=== PATIENT | female | born 1955 | race Caucasian/White ===

== ENCOUNTER → 2024-05-29 14:14 | Outpatient (REF) | payer MEDICARE, OTHER, SELFPAY | LOC: HWRAD 14:14 | PROVIDERS: ATTENDING PHYSICIAN Nurse Practitioner | DX: Z13.820 Encounter for screening for osteoporosis (principal); Z12.31 Encounter for screening mammogram for malignant neoplasm of breast; Z78.0 Asymptomatic menopausal state | CPT/HCPCS: 77063; 77067; 77080 ==

== ENCOUNTER 2024-06-16 09:11 | Inpatient (IN) | payer MEDICARE, OTHER, SELFPAY ==
[2024-06-15] VITALS (7 sets, daily range): BP systolic 93–198; BP diastolic 61–108; BMI 19.6
--- NOTE | 2024-06-15 19:46 | ED.GENMED ---
History of Present Illness
General
Chief Complaint: Breathing Problem
Source: patient and spouse
Exam Limitations: none
Time Seen by Provider: 06/15/24 19:30
Nursing documentation reviewed up to this point in time: agreed with
History of Present Illness
History of Present Illness:
Patient states she had 'flu like' symptoms 1 week ago. Since then has noted progressive SOB. Tonight breathing became more difficult. Brought to ED by spouse for eval. No fever/chlls. +course cough. Used her Trilogy as prescribed, used rescue
inhaler tonight without improvement.
Past History
Past History
ED Past Medical History: COPD, HTN, Hypercholesterolemia and Other (Lower GI bleed s/p polypectomy)
ED Past Surgical History: Cholecystectomy, Gynecological and Orthopedic
Social History
Tobacco: Former smoker
Alcohol: Occasional
Drug: None
Personal:
Living: with family
Employment: Retired
Family History
Family History: Other (Noncontributory)
Review of Systems
Review of Systems
Allergies reviewed?: Yes
All Other Systems: ROS reviewed and negative except as documented in HPI and ROS
Constitutional: Reports fatigue
EENT: Reports no symptoms
Respiratory: Reports cough and trouble breathing
Cardiac: Reports no symptoms
ABD/GI: Reports no symptoms
: Reports no symptoms
Musculoskeletal: Reports no symptoms
Skin: Reports no symptoms
Neurological: Reports no symptoms
Psychiatric: Reports no symptoms
Phy Exam
General Physical Exam
General Presentation: well appearing and no apparent distress
General age: appears stated age
General Skin: warm and dry
General Habitus: normal
General Mental: alert
Cardiovascular Exam
Cardiovascular Exam: regular rate/rhythm and no edema
Pulmonary Exam
Pulmonary Exam: chest non tender and decreased breath sounds
Musculoskeletal Exam
Musculoskeletal Exam: full ROM, no edema and neuro vasc intact
Skin Exam
Skin Exam: normal color, warm/dry and no rash
Psychiatric Exam
Psychiatric Exam: normal mood/affect
Scores
Heart Failure Risk
Heart Failure Risk Score: Not Applicable
Course
Orders/Labs/Results
Orders:
Orders
06/15/24 19:45
Electrocardiogram (*1) Urgent
Reason for Study: Shortness of Breath
EKG- Treatment ONCE
CR Chest - 2 Views Urgent
Comment:
Reason For Exam: SOB
06/15/24 19:47
Ipratropium/Albuterol Sulfate [Duoneb] 3 ml INH R NOW STA
06/15/24 20:16
COVID-19 Antigen Urgent
Source: Nasal Swab
Complete Blood Count/With Diff Urgent
Comprehensive Metabolic Panel Urgent
Influenza A+B Rapid Molecular Urgent
MAUDE Source: Nasal Swab
Specimen Description:
06/15/24 21:01
0.9% Sodium Chloride 500 ml [Nss] 500 ml IV BOLUS
Dexamethasone Sod Phosphate [Decadron] 10 mg IV NOW STA
06/15/24 21:41
Albuterol Sulfate [Ventolin Nebules] 7.5 mg INH R NOW STA
06/15/24 23:24
Admit/Transfer Patient As Directed
Co-Sign Provider:
Level of Care: Observation services
Assign to:: Medical/Surgical
Physician / Group: gareth
Diagnosis: copd exacerbation
Code Status As Directed
Resuscitation Status: Full Code
PRN Pain Medication Management As Directed
May give lesser potent ordered pain med per pt: Yes
preference::
Protocol:: Medication orders for pain may be administered in a
manner that supports deferring to patient preference
when the pt is:
- Requesting an ordered lesser potent pain medication.
Least to most potent pain medications are defined
as: acetaminophen < NSAID < tramadol < opioids
(morphine, oxycodone, hydromorphone).
- Requesting a lesser dose of the same medication IF
ORDERED.
- Requesting a less intrusive route of administration
if both routes are prescribed by the provider (PO <
IV).
06/16/24 01:52
Acetaminophen [Tylenol] 500 mg PO Q6HPRN PRN
Azithromycin 500 mg/250 ml [Zithromax Infusion] 500 mg in 250 ml IV Q24H
Dexamethasone Sod Phosphate [Decadron] 4 mg IV Q8H
Warfarin [Coumadin] 5 mg PO SuTuWeFrSa@1800
06/16/24 01:52
VTE Contraindication Routine
VTE Mechanical Device Contraindication: Medical Contraindication
Pharmocologic Contraindication: Medical Contraindication
Activity As Directed
Activity Level: As Tolerated
Vital Signs As Directed
Frequency: Per unit guidelines
06/16/24 07:09
Complete Blood Count/With Diff IN AM
Comprehensive Metabolic Panel IN AM
Prothrombin Time IN AM
06/16/24 08:00
Ipratropium/Albuterol Sulfate [Duoneb] 3 ml INH R QID
06/16/24 18:00
Lisinopril [Zestril] 2.5 mg PO QPM
Rosuvastatin Calcium [Crestor] 40 mg PO QPM
06/18/24 18:00
Warfarin [Coumadin] 7.5 mg PO MoTh@1800
Abnormal Lab Results
06/15/24
20:16
WBC 4.7 L 10^3/uL
(4.8-10.8)
MCHC 32.3 L g/dL
(33.0-37.0)
Absolute Lymphs (auto) 0.9 L 10^3/uL
(1.2-3.4)
Lymphocytes % 20.2 L %
(20.5-51.1)
Glucose 139 H mg/dl
(70-99)
06/15/24 20:16
06/15/24 20:16
Vital Signs
Initial and Last Documented VS:
Initial Vital Signs
Temp Pulse Resp BP Pulse Ox
98.2 F 104 17 198/108 94
06/15/24 19:27 06/15/24 19:27 06/15/24 19:27 06/15/24 19:27 06/15/24 19:27
Last Documented Vital Signs
Temp Pulse Resp BP Pulse Ox
98.0 F 92 18 155/83 93
06/16/24 15:25 06/16/24 15:42 06/16/24 15:42 06/16/24 15:25 06/16/24 21:53
*Radiology
Radiology exam reviewed: radiology read reviewed
*Pulse Oximetry
Patient hypoxic: yes
Comment: 92-93% RA at rest. 85% minimal activity.
*Critical Care Note
Total Time (30-74mins, 75-104mins- exclusive of procedures): Not Applicable
ED Attending Note
-
Portions of this chart may have been created with voice recognition software.� Occasional wrong word or��sound alike� substitutions may have occurred due to the inherent limitations of voice recognition software.
Discharge Plan
Departure
Patient Disposition: Admit
Date of Disposition: 06/15/24
Time of Disposition: 23:02
Presentation/result/management discussed w/ accepting MD/DO: Hospitalist
Condition: Fair
Covid-19: Negative COVID-19
Discharge Problem:
COPD exacerbation
Interventions
Interventions:
*Risk Screen - Suicide Last Done: 06/15/24 19:27
*General Assessment Last Done: 06/15/24 19:27
*Neglect/Abuse Screening Last Done: 06/15/24 19:27
ED- Fall Risk Assessment Last Done: 06/15/24 19:40
*ED COVID-19 Vaccine History Last Done: 06/15/24 19:27
*Nursing Disposition Last Done: 06/16/24 01:40
ED- Cardiac Assessment Last Done: 06/15/24 19:40
ED- Pulmonary Assessment Last Done: 06/15/24 19:40
Discharge Date and Time
Discharge Date/Time: 06/16/24 01:45
[2024-06-15] MEDS: DUONEB 3 ML INH (19:55)
[2024-06-15 20:29] LABS: % Basophils 0.4 % (0-2); % Eosinophils 0.6 % (0-6); % Immature Granulocytes 0.2 % (0-0.5); % Lymphocytes 20.2 % (20.5-51.1); % Monocytes 6.9 % (1.7-9.3); % Neutrophils 71.7 % (42.2-75.2); Absolute Lymphocytes 0.9 10^3/uL (1.2-3.4); Absolute Monocytes 0.3 10^3/uL (0.1-0.6); Absolute Neutrophils 3.3 10^3/uL (1.4-6.5); Hematocrit 38.7 % (37.0-47.0); Hemoglobin 12.5 g/dL (12.0-16.0); Mean Corp Hgb Conc. 32.3 g/dL (33.0-37.0); Mean Corpuscular Hgb 28.7 pg (27.0-31.0); Mean Platelet Volume 9.5 fL (7.4-10.4); Nucleated Red Blood Cells % 0 %; Platelet Count 157 10^3/uL (130-400); Red Blood Cell Count 4.35 10^6/uL (4.20-5.40); Red Cell Dist. Width 13.7 % (11.5-14.5); White Blood Cell Count 4.7 10^3/uL (4.8-10.8)
[2024-06-15 20:43] LABS: COVID-19 Antigen Negative (Negative)
[2024-06-15 21:05] LABS: ALT (SGPT) 18 U/L (0-35); AST (SGOT) 28 U/L (14-36); Albumin 4.4 g/dl (3.5-5.0); Alkaline Phosphatase 57 U/L (38-126); Blood Urea Nitrogen 14 mg/dl (7-17); Calcium 9.7 mg/dl (8.4-10.2); Carbon Dioxide 29 mmol/L (22-30); Chloride 101 mmol/L (98-107); Estimated Creatinine Clearance 57 ml/min; Glucose 139 mg/dl (70-99); Potassium 3.7 mmol/L (3.5-5.1); Sodium 142 mmol/L (135-145); Total Bilirubin 0.7 mg/dl (0.2-1.3); Total Protein 6.7 g/dl (6.3-8.2); eGFR > 60.00
[2024-06-15] MEDS: DECADRON 10 MG IV (21:26)
[2024-06-15] MEDS: NSS 500 IV (21:37)
[2024-06-15] MEDS: VENTOLIN NEBULES 7.5 MG INH (22:18)
--- NOTE | 2024-06-15 23:27 | HPS.HSE ---
Family Physician
-
Family Physician: Xochilt Allred
Chief Complaint
-
cough, shortness of breath
History of Present Illness
68-year-old female past medical history of COPD, CAD, Takotsubo cardiomyopathy, antiphospholipid antibody syndrome on Coumadin, hyperlipidemia, lower GI bleeding with history of colon polyp status post polypectomy, hypertension, psoriasis, lung
nodule presenting with flulike symptoms 1 week ago with bodyaches, sore throat, cough, chills. She initially felt better after a few days but then felt worse. Cough got worse this productive with shortness of breath. She denies chest pain or
tightness. She denies any fevers or chills. She denies any sick contacts. She denies nausea vomiting or diarrhea.
She only uses albuterol rescue inhaler once a year.
She no longer smokes or vapes but uses an empty vape pen. She denies alcohol use.
Medical History
Past Medical History
Past Medical History: Reports Other (COPD, CAD, Takotsubo cardiomyopathy, antiphospholipid antibody syndrome on Coumadin, hyperlipidemia, lower GI bleeding with history of colon polyp status post polypectomy, hypertension, psoriasis, lung nodule )
Past Surgical History: Reports Other ( Cholecystectomy, tubal ligation, C-spine fusion surgery,)
Social History
Tobacco: Vaping
Alcohol: None
Drug: None
Family History
Family History: Not pertinent
Allergies / Home Medications
Allergies reflects when Allergies were last updated in [employer].
Home Medications with original date entered in [employer]
Allergy/Medication List:
Allergies
Allergy/AdvReac Type Severity Reaction Status Date / Time
sumatriptan [From Imitrex] Allergy Shortness Verified 03/27/23 13:10
of Breath
Home Medications
albuterol sulfate 90 mcg/actuation aerosol inhaler 2 puff inhalation R Q4HPRN PRN sob 03/02/22
fluticasone fur. 100 mcg-umeclid 62.5 mcg-vilant 25 mcg inhalat.powder (Trelegy Ellipta) 1 inh inhalation R DAILY Lung/Breathing Issues 03/21/23
rosuvastatin 40 mg tablet 40 mg PO QPM High Cholesterol 03/21/23
lisinopril 2.5 mg tablet 2.5 mg PO QPM Blood Pressure 03/27/23
acetaminophen 500 mg tablet (Tylenol Extra Strength) 500 mg PO Q6HPRN PRN mild pain 06/15/24
warfarin 5 mg tablet 5 mg PO SUTUWEFRSA 06/15/24
warfarin 5 mg tablet 7.5 mg PO MOTH 06/15/24
Review of Systems
-
History Source: Patient
A 12 point ROS was completed and negative except as noted: Yes
Constitutional: Reports No Symptoms
EENT: Reports No Symptoms
Respiratory: Reports No Symptoms
Cardiac: Reports No Symptoms
Abdomen/GI: Reports No Symptoms
: Reports No Symptoms
Musculoskeletal: Reports No Symptoms
Skin: Reports No Symptoms
Neurological: Reports No Symptoms
Endocrine: Reports No Symptoms
Hematologic/Lymphatic: Reports No Symptoms
Psych: Reports No Symptoms
Physical Exam
Vital Signs
Vital Signs
Temp Pulse Resp BP Pulse Ox
98.2 F 73 11 125/61 96
06/15/24 19:27 06/15/24 22:00 06/15/24 22:00 06/15/24 22:00 06/15/24 22:00
Physical Exam
General: Well Developed, Well Nourished and No Apparent Distress
HEENT: NormoCephalic, Moist mucous membranes and Atraumatic
Respiratory: Wheezes
Cardiac: S1/S2 and Regular Rhythm; No Murmur or Rub
GI: Soft, Non Tender, Non Distended and Normal Bowel Sounds; No Organomegaly
Rectal: Deferred by Provider
Musculoskeletal: No Clubbing, No Cyanosis and No Edema
Skin: No Rash
Neuro: Nonfocal/grossly intact
Laboratory Results
-
06/15/24 20:16
06/15/24 20:16
Laboratory Results
Total Bilirubin 0.7 mg/dl (0.2-1.3) 06/15/24 20:16
AST 28 U/L (14-36) 06/15/24 20:16
ALT 18 U/L (0-35) 06/15/24 20:16
Alkaline Phosphatase 57 U/L (38-126) 06/15/24 20:16
Data Reviewed
-
Lab Data: Labs Reviewed by me
Old Records: Reviewed
Impression/Plan
-
IMPRESSION:
PLAN:
# Acute COPD exacerbation
-Bilateral wheezing
-COVID and influenza negative
-Chest x-ray unremarkable
-DuoNebs every 6 hours
-Dexamethasone 4 mg every 8 hours
-Azithromycin
History of lung nodule
-Recently underwent bronchoscopy in March which was nondiagnostic due to hemoptysis
Takotsubo cardiomyopathy
CAD
History of PVCs/PACs/SVT
Antiphospholipid antibody syndrome
-Continue Coumadin
-Check INR daily
Hyperlipidemia
-Continue statin
History of lower GI bleeding secondary to colon polyp status post polypectomy
Essential hypertension
-Continue lisinopril
Psoriasis
GERD
Former smoker
Vaping history
Full code
DVT prophylaxis�Coumadin
Regular diet
[2024-06-16 02:00] VITALS: BMI 18.4
[2024-06-16 02:10] VITALS: BP 138/73
[2024-06-16] MEDS: DECADRON 4 MG IV ×3 (02:33→17:16)
[2024-06-16] MEDS: ZITHROMAX INFUSION 250 IV (02:34)
--- NOTE | 2024-06-16 02:43 | PTCARENOTE ---
Pt admitted to . AAOx3 pleasant. Regular heart sounds. Lung sounds are diminished, shallow breathing and dyspneic with exertion. saO2 95% 1.5L. O2 will be wean as tolerated. Call little within reach and pt appears comfortable in bed.
[2024-06-16 07:30] VITALS: BP 124/70
[2024-06-16] MEDS: DUONEB 3 ML INH ×4 (07:44→19:50)
[2024-06-16 07:59] LABS: INR 3.31; PT 33.4 Sec (11.4-14.6)
[2024-06-16 08:25] LABS: ALT (SGPT) 18 U/L (0-35); AST (SGOT) 25 U/L (14-36); Albumin 4.2 g/dl (3.5-5.0); Alkaline Phosphatase 54 U/L (38-126); Blood Urea Nitrogen 15 mg/dl (7-17); Calcium 9.4 mg/dl (8.4-10.2); Carbon Dioxide 25 mmol/L (22-30); Chloride 105 mmol/L (98-107); Estimated Creatinine Clearance 64 ml/min; Glucose 160 mg/dl (70-99); Sodium 143 mmol/L (135-145); Total Bilirubin 0.4 mg/dl (0.2-1.3); Total Protein 6.3 g/dl (6.3-8.2); eGFR > 60.00
[2024-06-16 08:34] LABS: Hematocrit 37.1 % (37.0-47.0); Hemoglobin 11.9 g/dL (12.0-16.0); Mean Corp Hgb Conc. 32.1 g/dL (33.0-37.0); Mean Corpuscular Hgb 29.1 pg (27.0-31.0); Mean Corpuscular Volume 90.7 fL (81.0-99.0); Mean Platelet Volume 9.8 fL (7.4-10.4); Platelet Count 146 10^3/uL (130-400); Red Blood Cell Count 4.09 10^6/uL (4.20-5.40); Red Cell Dist. Width 13.7 % (11.5-14.5); White Blood Cell Count 2.9 10^3/uL (4.8-10.8)
--- NOTE | 2024-06-16 10:30 | W.PN.HOSP.TC ---
Today's Communication/Plan
-
see A/P
Assessment / Plan
Assessment / Plan
68-year-old female past medical history of COPD, CAD, Takotsubo cardiomyopathy, antiphospholipid antibody syndrome on Coumadin, hyperlipidemia, lower GI bleeding with history of colon polyp status post polypectomy, hypertension, psoriasis, lung
nodule; presented with flu-like symptoms 1 week ago with body aches, sore throat, cough, chills. She initially felt better after a few days but then felt worse. Cough got worse which is now productive, also c/o shortness of breath.
She denies chest pain or tightness. She denies any fevers or chills. She denies any sick contacts. She denies nausea vomiting or diarrhea.
She only uses albuterol rescue inhaler once a year.
She no longer smokes or vapes but uses an empty vape pen. She denies alcohol use.
A/P:
# Acute COPD exacerbation, likely precipitated by recent viral illness
COVID and influenza negative, Chest x-ray unremarkable
Check procalcitonin
Cont DuoNebs every 6 hours ATC and PRN
Cont Dexamethasone 4 mg every 8 hours for Bilateral wheezing
Azithromycin 500 mg x3 days
# Acute hypoxic respiratory insufficiency
Pt placed on 2L NC, cont O2 support and wean as tolerated, she is NOT on home O2
Check walking pulse Ox prior to discharge
# History of lung nodule
Recently underwent bronchoscopy in March which was nondiagnostic due to hemoptysis
Pt is well established with Pulm outpt
# Takotsubo cardiomyopathy
# CAD
# History of PVCs/PACs/SVT
# Antiphospholipid antibody syndrome
Continue [employer]ER Coumadin, holding tonight's dose with INR 3.3
INR daily
# Hyperlipidemia
Continue statin
# History of lower GI bleeding secondary to colon polyp status post polypectomy
# Essential hypertension
Continue lisinopril
# Psoriasis
# GERD
# Former smoker
# Vaping history
Full code
DVT prophylaxis�Coumadin, daily INR
Regular diet
DW at bedside
DW RN
Anticipated Discharge: 24 - 48 hours
Subjective/Interval History
-
Date of Service: June 16, 2024
Objective Data
-
Labs:
Laboratory Results
06/16/24
07:09
WBC 2.9 L
Hgb 11.9 L
Hct 37.1
Plt Count 146
PT 33.4 H
INR 3.31
Sodium 143
Potassium 4.0
Chloride 105
Carbon Dioxide 25
BUN 15
Creatinine 0.6
Glucose 160 H
Calcium 9.4
Total Bilirubin 0.4
AST 25
ALT 18
Alkaline Phosphatase 54
Vital Signs:
Vital Signs
Temp Pulse Resp BP Pulse Ox
36.8 C 93 18 124/70 95
06/16/24 07:30 06/16/24 07:49 06/16/24 07:49 06/16/24 07:30 06/16/24 07:49
I&O
06/15/24 06/16/24 06/17/24
06:59 06:59 06:59
Intake Total 610 / 610
Balance 610 / 610
Review of Systems
-
Respiratory: Reports Trouble Breathing (improved ) and Wheezing (improved )
Physical Exam
-
General: Well Developed, Well Nourished, Comfortable, Respiratory Distress (mild) and Conversant (speak in full sentences)
HEENT: Normocephalic, Atraumatic, Nose Appears Normal, Ears Appear Normal and Oxygen (2L NC)
Respiratory: Clear to Auscultation, Wheezes (mild, BL bases) and Non Labored Respirations; Negative Accessory Resp Muscle Use
Cardiac: Regular Rhythm and S1/S2
GI: Soft, Nontender, Nondistended and Normal Bowel Sounds
Skin: Warm and Dry
Neuro: Awake, Alert, Oriented, AO x 3 and Nonfocal/Grossly Intact
Psych: Calm and Intact Judgement/Insight
Data Reviewed
-
Diagnostic Radiology: Report Reviewed by me
Labs: Labs Reviewed by me
[2024-06-16] MEDS: ZITHROMAX 500 MG PO (10:55)
--- NOTE | 2024-06-16 12:08 | CM ---
CM reviewed chart, met with patient bedside, initial assessment completed. Patient resides with her in a multiple story home, three steps to enter. Patient denies use of DME, currently on O2, not on home O2. Patient denies VN or SNF history.
Patient confirms PCP- SALES AND SERVICE ENGINEER Xochilt Allred, pharmacy [facility], confirms prescription coverage. Patient denies insecurities at home. ARZOLA reviewed, signed, placed in chart, patient provided with copy. CM will continue to follow for all discharge
planning needs.
Plan; home no needs likely, watch for O2 needs.
[2024-06-16 12:33] LABS: Procalcitonin < 0.05 ng/ml (0.0-0.25)
[2024-06-16 13:24] LABS: % Immature Granulocytes 0.3 % (0-0.5); % Lymphocytes 9.4 % (20.5-51.1); % Monocytes 2.1 % (1.7-9.3); Absolute Lymphocytes 0.3 10^3/uL (1.2-3.4); Absolute Monocytes 0.1 10^3/uL (0.1-0.6); Absolute Neutrophils 2.5 10^3/uL (1.4-6.5); Nucleated Red Blood Cells % 0 %
[2024-06-16 13:26] LABS: % Neutrophils 88.2 % (42.2-75.2)
[2024-06-16 15:25] VITALS: BP 155/83
[2024-06-16] MEDS: CRESTOR 40 MG PO (17:17)
[2024-06-16] MEDS: ZESTRIL 2.5 MG PO (17:17)
[2024-06-16 23:32] VITALS: BP 145/78
[2024-06-17] MEDS: DECADRON 4 MG IV ×3 (02:12→17:10)
[2024-06-17 05:49] LABS: % Immature Granulocytes 0.3 % (0-0.5); % Monocytes 4.8 % (1.7-9.3); % Neutrophils 88.9 % (42.2-75.2); Absolute Lymphocytes 0.4 10^3/uL (1.2-3.4); Absolute Monocytes 0.3 10^3/uL (0.1-0.6); Hematocrit 36.7 % (37.0-47.0); Mean Corp Hgb Conc. 32.7 g/dL (33.0-37.0); Mean Corpuscular Hgb 29.4 pg (27.0-31.0); Mean Platelet Volume 9.7 fL (7.4-10.4); Nucleated Red Blood Cells % 0 %; Platelet Count 165 10^3/uL (130-400); Red Blood Cell Count 4.08 10^6/uL (4.20-5.40); Red Cell Dist. Width 13.5 % (11.5-14.5); White Blood Cell Count 6.7 10^3/uL (4.8-10.8)
[2024-06-17 05:53] LABS: INR 3.84; PT 37.4 Sec (11.4-14.6)
[2024-06-17 06:29] LABS: Blood Urea Nitrogen 19 mg/dl (7-17); Calcium 9.3 mg/dl (8.4-10.2); Carbon Dioxide 24 mmol/L (22-30); Chloride 104 mmol/L (98-107); Estimated Creatinine Clearance 55 ml/min; Glucose 133 mg/dl (70-99); Potassium 4.1 mmol/L (3.5-5.1); Sodium 140 mmol/L (135-145); eGFR > 60.00
[2024-06-17] MEDS: DUONEB 3 ML INH ×4 (07:46→19:56)
[2024-06-17 08:00] VITALS: BP 142/75
[2024-06-17] MEDS: ZITHROMAX 500 MG PO (08:59)
--- NOTE | 2024-06-17 11:35 | W.PN.HOSP.TC ---
Today's Communication/Plan
-
see A/P
Assessment / Plan
Assessment / Plan
68-year-old female past medical history of COPD, CAD, Takotsubo cardiomyopathy, antiphospholipid antibody syndrome on Coumadin, hyperlipidemia, lower GI bleeding with history of colon polyp status post polypectomy, hypertension, psoriasis, lung
nodule; presented with flu-like symptoms 1 week ago with body aches, sore throat, cough, chills. She initially felt better after a few days but then felt worse. Cough got worse which is now productive, also c/o shortness of breath.
She denies chest pain or tightness. She denies any fevers or chills. She denies any sick contacts. She denies nausea vomiting or diarrhea.
She only uses albuterol rescue inhaler once a year.
She no longer smokes or vapes but uses an empty vape pen. She denies alcohol use.
A/P:
# Acute COPD exacerbation, likely precipitated by recent viral illness
COVID and influenza negative, Chest x-ray unremarkable, procalcitonin negative
Cont DuoNebs every 6 hours ATC and PRN
Cont Dexamethasone 4 mg every 8 hours for Bilateral wheezing
Azithromycin 500 mg x3 days
# Acute hypoxic respiratory insufficiency
Pt placed on 2L NC, cont O2 support and wean as tolerated, she is NOT on home O2
Check walking pulse Ox prior to discharge
# History of lung nodule
Recently underwent bronchoscopy in March which was nondiagnostic due to hemoptysis
Pt is well established with Pulm outpt
# Takotsubo cardiomyopathy
# CAD
# History of PVCs/PACs/SVT
# Antiphospholipid antibody syndrome
[employer] Coumadin on hold with elevated INR at 3.8 today
INR daily
# Hyperlipidemia
Continue statin
# History of lower GI bleeding secondary to colon polyp status post polypectomy
# Essential hypertension
Continue lisinopril
# Psoriasis
# GERD
# Former smoker
# Vaping history
Full code
DVT prophylaxis� [employer] Coumadin, daily INR
Regular diet
DW at bedside
Anticipated Discharge: 24 - 48 hours
Subjective/Interval History
-
Date of Service: June 17, 2024
Objective Data
-
Labs:
Laboratory Results
06/17/24
05:22
WBC 6.7
Hgb 12.0
Hct 36.7 L
Plt Count 165
PT 37.4 H
INR 3.84
Sodium 140
Potassium 4.1
Chloride 104
Carbon Dioxide 24
BUN 19 H
Creatinine 0.7
Glucose 133 H
Calcium 9.3
Vital Signs:
Vital Signs
Temp Pulse Resp BP Pulse Ox
36.6 C 91 18 142/75 95
06/17/24 08:00 06/17/24 11:21 06/17/24 11:21 06/17/24 08:00 06/17/24 11:21
I&O
06/16/24 06/17/24 06/18/24
06:59 06:59 06:59
Intake Total 610 / 610 1460 / 1460
Balance 610 / 610 1460 / 1460
Review of Systems
-
Respiratory: Reports Trouble Breathing and Wheezing
Physical Exam
-
General: Well Developed, Well Nourished, Comfortable, Respiratory Distress (mild) and Conversant (speak in full sentences)
HEENT: Normocephalic, Atraumatic, Nose Appears Normal, Ears Appear Normal and Oxygen (2L NC)
Respiratory: Clear to Auscultation, Wheezes (mild, BL bases) and Non Labored Respirations; Negative Accessory Resp Muscle Use
Cardiac: Regular Rhythm and S1/S2
GI: Soft, Nontender, Nondistended and Normal Bowel Sounds
Skin: Warm and Dry
Neuro: Awake, Alert, Oriented and AO x 3
Psych: Calm and Intact Judgement/Insight
Data Reviewed
-
Diagnostic Radiology: Report Reviewed by me
Labs: Labs Reviewed by me
--- NOTE | 2024-06-17 13:00 | PTCARENOTE ---
Placed pt on !L of cont O2 to try and wean her. At present ptc/o feeling SOB. Pt placed back on 2L. Occasional audible wheeze noted. Will cont to monitor.
[2024-06-17 16:30] VITALS: BP 132/70
[2024-06-17] MEDS: CRESTOR 40 MG PO (17:10)
[2024-06-17] MEDS: ZESTRIL 2.5 MG PO (17:10)
[2024-06-17 23:18] VITALS: BP 123/61
[2024-06-18] MEDS: DECADRON 4 MG IV (02:16)
[2024-06-18] MEDS: DUONEB 3 ML INH ×2 (07:27→11:08)
[2024-06-18 07:30] VITALS: BP 137/67
[2024-06-18 07:44] LABS: % Basophils 0.1 % (0-2); % Immature Granulocytes 0.4 % (0-0.5); % Lymphocytes 5.1 % (20.5-51.1); % Neutrophils 90.4 % (42.2-75.2); Absolute Lymphocytes 0.5 10^3/uL (1.2-3.4); Absolute Monocytes 0.4 10^3/uL (0.1-0.6); Absolute Neutrophils 9.3 10^3/uL (1.4-6.5); Hematocrit 39.4 % (37.0-47.0); Hemoglobin 12.5 g/dL (12.0-16.0); Mean Corp Hgb Conc. 31.7 g/dL (33.0-37.0); Mean Corpuscular Volume 91.4 fL (81.0-99.0); Nucleated Red Blood Cells % 0 %; Platelet Count 216 10^3/uL (130-400); Red Blood Cell Count 4.31 10^6/uL (4.20-5.40); Red Cell Dist. Width 13.9 % (11.5-14.5); White Blood Cell Count 10.2 10^3/uL (4.8-10.8)
[2024-06-18 08:01] LABS: PT 33.4 Sec (11.4-14.6)
[2024-06-18 08:03] LABS: Blood Urea Nitrogen 23 mg/dl (7-17); Calcium 9.3 mg/dl (8.4-10.2); Carbon Dioxide 25 mmol/L (22-30); Chloride 102 mmol/L (98-107); Estimated Creatinine Clearance 55 ml/min; Glucose 150 mg/dl (70-99); Magnesium 2.3 mg/dl (1.6-2.3); Potassium 4.3 mmol/L (3.5-5.1); Sodium 141 mmol/L (135-145); eGFR > 60.00
[2024-06-18] MEDS: ZITHROMAX 500 MG PO (08:51)
--- NOTE | 2024-06-18 08:55 | W.PN.HOSP.TC ---
Addendum entered and electronically signed by Dangelo Armas MD 06/18/24 16:29:
#BMI: 18.4 - Underweight
Encourage oral intake
Original Note:
Today's Communication/Plan
-
Change to prednisone
Discharge today
Assessment / Plan
Assessment / Plan
68-year-old female past medical history of COPD, CAD, Takotsubo cardiomyopathy, antiphospholipid antibody syndrome on Coumadin, hyperlipidemia, lower GI bleeding with history of colon polyp status post polypectomy, hypertension, psoriasis, lung
nodule; presented with flu-like symptoms 1 week ago with body aches, sore throat, cough, chills. She initially felt better after a few days but then felt worse. Cough got worse which is now productive, also c/o shortness of breath.
She denies chest pain or tightness. She denies any fevers or chills. She denies any sick contacts. She denies nausea vomiting or diarrhea.
She only uses albuterol rescue inhaler once a year.
She no longer smokes or vapes but uses an empty vape pen. She denies alcohol use.
A/P:
# Acute COPD exacerbation, likely precipitated by recent viral illness
COVID and influenza negative, Chest x-ray unremarkable, procalcitonin negative
Resolved status post IV dexamethasone, DuoNebs
Change to prednisone 40 mg daily for 5 more days, no taper needed
Discharge on azithromycin for 2 more days to complete a 5-day course
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 Santizo in 2-3 weeks
# Acute hypoxic respiratory insufficiency
Pt placed on 2L NC, cont O2 support and wean as tolerated, she is NOT on home O2
Resolved, does not need oxygen at rest or with activity
# History of lung nodule
Recently underwent bronchoscopy in March which was nondiagnostic due to hemoptysis
Pt is well established with Pulm outpt
# Takotsubo cardiomyopathy
# CAD
# History of PVCs/PACs/SVT
# Antiphospholipid antibody syndrome
[employer]FA[employer]URING [employer] Coumadin on hold with elevated INR at 3.3 today
INR daily
# Hyperlipidemia
Continue statin
# History of lower GI bleeding secondary to colon polyp status post polypectomy
# Essential hypertension
Continue lisinopril
# Psoriasis
# GERD
# Former smoker
# Vaping history
Full code
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
Regular diet
Physical Exam
General: No acute distress
HEENT: Normocephalic, Atraumatic, EOMI, MMM
Respiratory: Diminished breath sounds in all lung bynum
Cardiac: Normal S1/S2, Regular Rate and Rhythm
GI: Soft, Nontender, Nondistended, Normal Bowel Sounds
Extremities: No Clubbing, Cyanosis, or Edema
Neuro: Nonfocal/Grossly Intact
Psych: Calm, Cooperative
Anticipated Discharge: Today
Subjective/Interval History
-
Date of Service: June 18, 2024
Patient denies shortness of breath at rest. Denies dyspnea with activity. No fever, no vomiting. No chest pain. She feels well today, and is eager for discharge.
Objective Data
-
Labs:
Laboratory Results
06/18/24
06:43
WBC 10.2
Hgb 12.5
Hct 39.4
Plt Count 216 D
PT 33.4 H
INR 3.30
Sodium 141
Potassium 4.3
Chloride 102
Carbon Dioxide 25
BUN 23 H
Creatinine 0.7
Glucose 150 H
Calcium 9.3
Vital Signs:
Vital Signs
Temp Pulse Resp BP Pulse Ox
97.7 F 79 16 137/67 96
06/18/24 07:30 06/18/24 07:31 06/18/24 07:31 06/18/24 07:30 06/18/24 07:31
I&O
06/17/24 06/18/24 06/19/24
06:59 06:59 06:59
Intake Total 1460 / 1460 1690 / 1690
Balance 1460 / 1460 1690 / 1690
[2024-06-18] MEDS: DECADRON IV (10:03)
--- NOTE | 2024-06-18 11:46 | CM ---
CM reviewed chart and noted dc order
Pt is independent throughout hallway
Per home O2 eval, does not qualify
Bedside meeting with pt and spouse
No dc needs identified
Pt now inpt- IMM verbally completed
Copy provided
Discharge Disposition- home, no needs, spouse transport
[2024-06-18] MEDS: DELTASONE 40 MG PO (11:47)
--- NOTE | 2024-06-18 12:32 | PTCARENOTE ---
pt educated on d/c. iv removed. pt verbalized understanding of medications and d/c. pt left via wheelchair with staff member. pt left w/ belongings and d/c instructions.
--- NOTE | 2024-06-18 13:57 | W.DCSUMMARY ---
Discharge Summary
Discharge Data
Date of Admission: 06/16/24
Date of Discharge: 06/18/24
-
Pending Results: No
Hospital Course
Discharge diagnosis:
Acute on chronic obstructive pulmonary disease exacerbation
Recent viral illness
Acute hypoxic respiratory insufficiency
Supratherapeutic INR
Antiphospholipid antibody syndrome on Coumadin
History of lung nodule
Takotsubo cardiomyopathy
Coronary artery disease
History of premature ventricular contractions, premature atrial contractions, supraventricular tachycardia
Chest x-ray:
No acute disease of the chest
Hospital course:
68-year-old female with a past medical history of antiphospholipid antibody syndrome on Coumadin, coronary artery disease, and COPD was admitted for acute COPD exacerbation with acute hypoxic respiratory insufficiency. Patient reports recently
having a viral illness, which likely precipitated her flare. She was treated with IV dexamethasone, bronchodilators. She initially required 2 L of oxygen. She was successfully weaned off of oxygen, and did not require any oxygen with activity.
Patient's breathing improved dramatically. Her wheezing resolved. She still has diminished lung sounds. She is medically stable for discharge on prednisone for an additional 4 days, no taper needed.
Patient is on Coumadin for antiphospholipid syndrome. She had a supratherapeutic INR. Her Coumadin was held. She was instructed to check her INR daily, and resume her Coumadin when her INR is less than 3.0.
Patient is medically stable for discharge. 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
Disposition: Home self-care
Discharge planning: Required 39 minutes
Discharge Plan
-
Patient Disposition: Home (Routine Discharge)
Discharge Diagnosis/Procedures: Acute on chronic obstructive pulmonary disease exacerbation, hypoxia, antiphospholipid antibody syndrome on Coumadin, supratherapeutic INR
Condition: Good
Diet: Low Fat and Low Cholesterol
Activity: With assistance
Driving Restrictions: As prior to admission
Activity Restrictions/Additional Instructions:
Check your INR daily. Resume Coumadin when your INR is less than 3.
Please follow-up with your primary care doctor in 1 week, and your usual cotton weigher in 2-3 weeks.
Referrals:
Lola Santizo, DO [Active] - in two to three weeks
Xochilt Allred CRNP [Family Provider] - in one week
Prescriptions:
New
ipratropium-albuterol 0.5 mg-3 mg(2.5 mg base)/3 mL Solution For Nebulization
3 ml inhalation R QID PRN (Reason: shortness of breath or wheezing) Qty: 60 0RF
azithromycin 250 mg Tablet
500 mg PO DAILY 2 Days Qty: 4 0RF
prednisone 20 mg Tablet
40 mg PO DAILY 4 Days Qty: 8 0RF
Continued
rosuvastatin 40 mg Tablet
40 mg PO QPM
Trelegy Ellipta 100-62.5-25 mcg Blister With Device
1 inh INHALATION R DAILY
lisinopril 2.5 mg tablet
2.5 mg PO QPM
acetaminophen [Tylenol Extra Strength] 500 mg Tablet
500 mg PO Q6HPRN PRN (Reason: mild pain)
Changed
albuterol sulfate 90 mcg/actuation HFA aerosol inhaler
4 puff INHALATION R Q4HPRN PRN (Reason: sob) Qty: 0 0RF
Held
warfarin 5 mg Tablet
5 mg PO SUTUWEFRSA
Hold Instructions: Resume on 06/19/24.
warfarin 5 mg Tablet
7.5 mg PO MOTH
Hold Instructions: Resume on 06/19/24.
Discharge Orders:
Discharge Patient (As Directed); Ordered 06/18/24
Ordered By: Dangelo Armas
Discharge Date and Time
Discharge Date/Time: 06/18/24 13:02
Print Language: DIVEHI
--- NOTE | 2024-06-18 16:10 | PN.CDI ---
CDI
- -
CDI:
Physician Documentation Request
Admit Date: 06/16/24 09:11
Dear Doctor Do,
Clinical Indicators:
Patient admitted with COPD exacerbation.
Height: 5 ft 1 in
Weight: 99 lbs 12.8 oz
BMI: 18.4
06/18 note/assessment: 'BMi 18.4 underwt/ht,'
If possible, please provide an associated diagnosis related to the abnormal BMI, such as:
Underweight
BMI is not significant
Other
Use of terms such as suspected, likely, concern for, or probable (associated with a specific diagnosis that is being evaluated, monitored, or treated as if it exists) are acceptable and can be coded in the inpatient setting, when documented at the
time of discharge.
Thank you,
Tisha Love RN BSN
CDI Specialist
available via tiger text
Please use your independent medical judgment in providing your response.
== END 2024-06-18 13:02 | disposition home or self-care (01) | DRG 191 ==
LOC: 2 NORTH 09:11
PROVIDERS: Internal Medicine; Nurse Practitioner; ADMITTING PHYSICIAN Hospitalist; ATTENDING PHYSICIAN Family Medicine; EMERGENCY PHYSICIAN Emergency Medicine; FAMILY PHYSICIAN Nurse Practitioner
DX: J44.1 Chronic obstructive pulmonary disease with (acute) exacerbation (principal); D68.61 Antiphospholipid syndrome; Z68.1 Body mass index [BMI] 19.9 or less, adult; I51.81 Takotsubo syndrome; R63.6 Underweight; R06.89 Other abnormalities of breathing; R09.02 Hypoxemia; I25.10 Atherosclerotic heart disease of native coronary artery without angina pectoris; Z79.01 Long term (current) use of anticoagulants; E78.00 Pure hypercholesterolemia, unspecified; I10 Essential (primary) hypertension; L40.9 Psoriasis, unspecified; K21.9 Gastro-esophageal reflux disease without esophagitis; Z87.891 Personal history of nicotine dependence; Z11.52 Encounter for screening for COVID-19
CPT/HCPCS: 71046; 80048; 80053; 83735; 84145; 85025; 85610; 87502; 87811; 93005; 94640; 94644; 96361; 96374; 99285

== ENCOUNTER 2025-05-16 06:36 | Day surgery (SDC) | payer MEDICARE, OTHER, SELFPAY | END 2025-05-16 12:18 | disposition home or self-care (01) | LOC: GI 06:36 | PROVIDERS: ATTENDING PHYSICIAN Internal Medicine | DX: Z12.11 Encounter for screening for malignant neoplasm of colon (principal); K64.9 Unspecified hemorrhoids; K57.30 Diverticulosis of large intestine without perforation or abscess without bleeding; K63.5 Polyp of colon; D12.3 Benign neoplasm of transverse colon; D12.0 Benign neoplasm of cecum; D12.4 Benign neoplasm of descending colon; Z86.0101 Personal history of adenomatous and serrated colon polyps | CPT/HCPCS: 45385; 45380; 88305 ==

== ENCOUNTER → 2025-07-10 14:15 | Outpatient (REF) | payer MEDICARE, OTHER, SELFPAY | LOC: HWWDC 14:15 | PROVIDERS: ATTENDING PHYSICIAN Nurse Practitioner | DX: Z12.31 Encounter for screening mammogram for malignant neoplasm of breast (principal) | CPT/HCPCS: 77063; 77067 ==